=== PATIENT | female | born 1935 | race Caucasian/White ===

== ENCOUNTER 2016-10-08 14:41 | Emergency (ER) | payer BC | END 2016-10-08 15:42 | disposition home or self-care (01) | LOC: ER 14:41 | DX: K59.00 Constipation, unspecified (principal); K56.49 Other impaction of intestine; G30.9 Alzheimer's disease, unspecified; F02.80 Dementia in other diseases classified elsewhere, unspecified severity, without behavioral disturbance, psychotic disturbance, mood disturbance, and anxiety; I10 Essential (primary) hypertension; Z79.899 Other long term (current) drug therapy; Z88.0 Allergy status to penicillin | CPT/HCPCS: 99282 ==